=== PATIENT | female | born 1945 | race Caucasian/White ===

== ENCOUNTER 2017-12-06 20:43 | Emergency (ER) | payer MEDICARE, OTHER ==
[2017-12-06 20:56] VITALS: BP 153/78; PULSE 72; RESP 20; TEMP 97.5; O2SAT 97
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
== END 2017-12-06 22:44 | disposition home or self-care (01) ==
LOC: C.ER 20:43
DX: S40.021A Contusion of right upper arm, initial encounter (principal); Y08.89XA Assault by other specified means, initial encounter